=== PATIENT | female | born 1965 | race Caucasian/White ===

== ENCOUNTER 2016-12-10 14:56 | Emergency (ER) | payer MEDICAID ==
[~2016-12-10] VITALS: Ht 162.6 cm; Wt 63.0 kg
[~2016-12-10 14:56] MED LIST: BENADRYL OTC
[2016-12-10 14:59] VITALS: BP 131/86
== END 2016-12-10 16:15 | disposition home or self-care (01) ==
LOC: ED 15:17
DX: L03.211 Cellulitis of face (principal); J44.9 Chronic obstructive pulmonary disease, unspecified
CPT/HCPCS: 99283

== ENCOUNTER 2017-03-20 11:40 | Emergency (ER) | payer MEDICAID ==
[~2017-03-20] VITALS: Ht 167.6 cm; Wt 65.3 kg
[2017-03-20 11:52] VITALS: BP 128/77
== END 2017-03-20 13:26 | disposition home or self-care (01) ==
LOC: ED 13:00
DX: L03.211 Cellulitis of face (principal); Z86.14 Personal history of Methicillin resistant Staphylococcus aureus infection; J44.9 Chronic obstructive pulmonary disease, unspecified
CPT/HCPCS: 99283

== ENCOUNTER 2017-05-25 08:10 | Emergency (ER) | payer MEDICAID ==
[~2017-05-25] VITALS: Ht 167.6 cm; Wt 65.0 kg
[2017-05-25 08:12] VITALS: BP 113/79
[2017-05-25] MEDS ORDERED: FLUORESCEIN OPHTHALMIC 1 MG STRIP ONE (08:23)
[2017-05-25] MEDS ORDERED: PROPARACAINE OPHTH 0.5%, 15ML ONE (08:24)
== END 2017-05-25 08:51 | disposition home or self-care (01) ==
LOC: ED 08:43
DX: S00.12XA Contusion of left eyelid and periocular area, initial encounter (principal); J44.9 Chronic obstructive pulmonary disease, unspecified; X58.XXXA Exposure to other specified factors, initial encounter; Y93.89 Activity, other specified; Y92.89 Other specified places as the place of occurrence of the external cause; Y99.8 Other external cause status
CPT/HCPCS: 99281

== ENCOUNTER 2017-09-24 18:35 | Emergency (ER) | payer MEDICAID ==
[~2017-09-24] VITALS: Ht 167.6 cm; Wt 60.0 kg
[2017-09-24 18:43] VITALS: BP 115/74
[2017-09-24] MEDS ORDERED: LORazepam 1MG TABLET ONE (19:22)
[2017-09-24] MEDS ORDERED: LORazepam 1MG TABLET PO ONE (19:30)
[2017-09-24 19:35] LABS: BASOPHILS # (AUTO) 0.04 x10^3/uL (0-0.1); BASOPHILS % (AUTO) 0 % (0-1); EOSINOPHILS # (AUTO) 0.06 x10^3/uL (0-0.4); EOSINOPHILS % (AUTO) 0 % (1-7); LYMPHOCYTES # (AUTO) 0.96 x10^3/uL (1-3.4); LYMPHOCYTES % (AUTO) 6 % (22-44); MD NO; MEAN CORPUSCULAR HEMOGLOBIN 31.6 pg (27.0-34.8); MEAN CORPUSCULAR HGB CONC 33.7 g/dL (32.4-35.8); MEAN CORPUSCULAR VOLUME 93.9 fL (80-100); MEAN PLATELET VOLUME 6.3 fL (7.4-10.4); MONOCYTES # (AUTO) 0.15 x10^3/uL (0.2-0.8); MONOCYTES % (AUTO) 1 % (2-9); NEUTROPHILS % (AUTO) 92 % (42-75); PLATELET COUNT 276 x10^3/uL (130-400); RED BLOOD COUNT 4.65 x10^6/uL (3.82-5.3); RED CELL DISTRIBUTION WIDTH 13.2 % (9.6-15.2)
[2017-09-24 19:44] LABS: ALBUMIN 2.9 g/dL (3.4-5.0); ANION GAP 7 mmol/L (5-15); CALCIUM 8.4 mg/dL (8.5-10.1); CHLORIDE 108 mmol/L (98-107); CREATININE 0.78 mg/dL (0.55-1.02)
[2017-09-24 20:49] LABS: CULTURE INDICATED? NO; MICROSCOPIC NOT IND
== END 2017-09-24 21:18 | disposition home or self-care (01) ==
LOC: ED 19:37
DX: F45.8 Other somatoform disorders (principal); J44.9 Chronic obstructive pulmonary disease, unspecified
CPT/HCPCS: 36415; 71046; 80048; 81003; 82040; 85025; 93005; 99285